=== PATIENT | female | born 1975 | race Caucasian/White ===

== ENCOUNTER → 2018-08-11 | Outpatient (CLI) | payer BC ==
[~2018-08-11] MED LIST: CLINDAMYCIN TP; DIFLUCAN150 MG PO; KEFLEX500 M1 PO; NAPROSYN500 MG PO; ORACEA40 MG PO; PROAIR HFA0.09 MG/AC IH; TRETINOIN TP; ZITHROMAX Z PA250 MG PO
== END | disposition home or self-care (01) ==
LOC: US 15:00
DX: E01.0 Iodine-deficiency related diffuse (endemic) goiter (principal)

== ENCOUNTER → 2019-01-26 | Outpatient (CLI) | payer BC ==
--- NOTE | ~2019-01-26 | EKG ---
[place], [place] ELECTROCARDIOGRAM REPORT NAME: MICHAEL KENT UNIT #: [id number] ROOM: DOCTOR: EPIPHANY DRAFT REPORT BIRTHDATE: [birth year] [facility] Test Date: 2019-01-26 Test Time: 15:11:35 Pat Name: MICHAEL KENT Department: Room: Gender: F Engineering Technical Specialist: : 1975 Requested By: RAZ GARCIA Order Number: [id number] Reading MD: Romina Murphy MD Measurements Intervals [place] Rate: 89 P: 48 UT: 151 QRS: 70 QRSD: 81 T: 55 QT: 351 QTc: 428 Interpretive Statements Sinus rhythm Borderline T abnormalities, anterior leads Baseline wander in lead(s) II Electronically Signed On 01-26-2019 13:44:12 PDT by Romina Murphy MD CM:EKGRPT:ELECTROCARDIOGRAM REPORT [id number] RAZ GARCIA EPIPHANY DRAFT REPORT RAZ GARCIA
== END | disposition home or self-care (01) ==
LOC: CARD 14:58
DX: R07.9 Chest pain, unspecified (principal); J45.909 Unspecified asthma, uncomplicated; F32.9 Major depressive disorder, single episode, unspecified; F41.9 Anxiety disorder, unspecified; R06.02 Shortness of breath

== ENCOUNTER → 2019-02-16 | Outpatient (CLI) | payer BC ==
--- NOTE | ~2019-02-16 | HM ---
[place], [place] HOLTER MONITOR REPORT NAME: MICHAEL KENT UNIT #: [id number] ROOM: DOCTOR: JUSTINE ACOSTA MD BIRTHDATE: [birth year] DOS: 24-HOUR HOLTER MONITOR: The patient remained in sinus rhythm throughout the entire period. Minimum heart rate is 52, maximum is 120. Average is 79 beats per minute. The patient remained in sinus rhythm. Few episodes of sinus tachycardia. No significant ventricular or supraventricular dysrhythmia. Isolated PVCs. No bradycardic episodes. No significant pauses. FINAL IMPRESSION: Sinus rhythm with a couple of episodes of sinus tachycardia, isolated PACs and PVCs. No ventricular or supraventricular dysrhythmia. JUSTINE ACOSTA MD CM:HOLTER:HOLTER MONITOR REPORT [id number] JUSTINE ACOSTA MD
== END | disposition home or self-care (01) ==
LOC: CARD 07:49
DX: R00.2 Palpitations (principal); F41.9 Anxiety disorder, unspecified; R07.9 Chest pain, unspecified

== ENCOUNTER → 2019-08-15 | Outpatient (CLI) | payer BC ==
[2019-08-15 10:15] LABS: FREE T4 0.98 ng/dl (0.76-1.46)
[2019-08-15 10:19] LABS: THYROID STIM HORMONE (HS) 0.785 uIU/ml (0.358-4.75)
== END | disposition home or self-care (01) ==
LOC: LAB 09:23
PROVIDERS: Internal Medicine Endocrinology, Diabetes & Metabolism
DX: E04.9 Nontoxic goiter, unspecified (principal); E55.9 Vitamin D deficiency, unspecified

== ENCOUNTER → 2019-08-16 | Outpatient (CLI) | payer BC | END | disposition home or self-care (01) | LOC: US 11:00 | DX: E04.1 Nontoxic single thyroid nodule (principal) ==

== ENCOUNTER → 2020-09-12 | Outpatient (CLI) | payer BC | END | disposition home or self-care (01) | LOC: US 08-20 07:30 | PROVIDERS: ATTEND Internal Medicine Endocrinology, Diabetes & Metabolism | DX: E04.2 Nontoxic multinodular goiter (principal) ==

== ENCOUNTER → 2021-02-03 | Outpatient (CLI) | payer BC ==
[2021-02-03 09:26] LABS: ALBUMIN 3.4 gm/dl (3.1-4.5)
[2021-02-03 09:31] LABS: THYROID STIM HORMONE (HS) 0.909 uIU/ml (0.358-4.75)
== END | disposition home or self-care (01) ==
LOC: LAB 08:32
PROVIDERS: Internal Medicine Endocrinology, Diabetes & Metabolism; ATTEND Nurse Practitioner Family
DX: E55.9 Vitamin D deficiency, unspecified (principal); E04.9 Nontoxic goiter, unspecified

== ENCOUNTER → 2021-09-15 | Outpatient (CLI) | payer BC ==
[2021-09-15 17:13] LABS: FREE T4 1.06 ng/dl (0.76-1.46); THYROID STIM HORMONE (HS) 0.838 uIU/ml (0.358-4.75)
== END | disposition home or self-care (01) ==
LOC: LAB 15:57 → US 16:00
PROVIDERS: ATTEND Internal Medicine
DX: E04.2 Nontoxic multinodular goiter (principal); E01.0 Iodine-deficiency related diffuse (endemic) goiter; R00.2 Palpitations; Z13.29 Encounter for screening for other suspected endocrine disorder

== ENCOUNTER → 2022-08-19 | Outpatient (CLI) | payer BC ==
[2022-08-19 09:53] LABS: BASO # 0.1 10*3/uL (0.0-0.1); BASO % 1.3 % (0.0-1.0); EOS # 0.3 10*3/uL (0.0-0.4); EOS % 5.1 % (1.0-4.0); HEMATOCRIT 40.4 % (37.0-47.0); LYMPH # 1.7 10*3/uL (1.3-4.4); LYMPH % 27.4 % (27.0-41.0); MEAN CELL VOLUME 89.6 fl (81.0-99.0); MEAN CORPUSCULAR HGB 31.5 pg (27.0-31.0); MEAN CORPUSCULAR HGB CONC 35.1 g/dl (33.0-37.0); MEAN PLATELET VOLUME 11.6 fl (9.6-12.3); MONO # 0.4 10*3/uL (0.1-1.0); MONO % 6.8 % (3.0-9.0); NEUT # 3.6 10*3/uL (2.3-7.9); NEUT % 59.2 % (47.0-73.0); PLATELET COUNT AUTOMATED 231 10*3/uL (130-400); RED BLOOD COUNT 4.51 10*6/uL (4.10-5.10); RED CELL DISTRI WIDTH 12.2 % (0-14.5)
[2022-08-19 10:38] LABS: ALKALINE PHOSPHATASE 51 U/L (46-116); BUN 13 mg/dl (9-23); CHLORIDE 107 mmol/L (98-107); CHOLESTEROL 154 mg/dL (<200); LDL CHOLESTEROL 90 mg/dL (9-159); SGPT/ALT 16 U/L (10-49); THYROID STIM HORMONE (HS) 0.894 uIU/ml (0.550-4.780); TRIGLYCERIDES 67 mg/dl (<150)
== END | disposition home or self-care (01) ==
LOC: LAB 08:34
PROVIDERS: ATTEND Nurse Practitioner Family
DX: Z13.220 Encounter for screening for lipoid disorders (principal); Z12.31 Encounter for screening mammogram for malignant neoplasm of breast; Z12.12 Encounter for screening for malignant neoplasm of rectum; F41.9 Anxiety disorder, unspecified; E03.9 Hypothyroidism, unspecified; M67.40 Ganglion, unspecified site

== ENCOUNTER → 2025-01-23 | Outpatient (CLI) | payer SELFPAY | END | disposition home or self-care (01) | LOC: LAB 09:46 | PROVIDERS: ATTEND Nurse Practitioner Family | DX: R30.0 Dysuria (principal) ==